=== PATIENT | female | born 1970 ===

== ENCOUNTER 2016-10-13 04:09 | Observation (INO) | payer MEDICAID ==
[2016-10-13 04:13] VITALS: BMI 33.5
[2016-10-13 04:20] VITALS: TEMP 98.3; O2SAT 100
[2016-10-13] MEDS ORDERED: Lactated Ringer's 1,000 ML IV STA (04:32)
--- NOTE | 2016-10-13 06:58 | US ---
EXAM: US First Trimester, Transabdominal CLINICAL HISTORY: 46 years old, female; Signs and symptoms; Lmp or gestational age (in weeks): 07/30/16; Antepartum complications; Hemorrhage; Additional info: R/O ectopic TECHNIQUE: Real-time transabdominal obstetrical ultrasound of the maternal pelvis and a first trimester with image documentation. COMPARISON: No relevant prior studies available. FINDINGS: Gestation: No intrauterine gestational sac. Uterus/cervix: Endometrium: 1.0 cm in thickness. Closed cervix. 5.8 x 5.9 x 5.6 cm uterine mass. Ovaries: Normal ovaries. No adnexal masses. Free fluid: Trace free fluid within pelvis. IMPRESSION: 1. No intrauterine gestation. DDX: Early IUP, missed , ectopic . 2. Probable fibroid. 3. Incidental/non-acute findings are described above. EXAM: US , Transvaginal CLINICAL HISTORY: 46 years old, female; Signs and symptoms; Lmp or gestational age (in weeks): 07/30/16; Antepartum complications; Hemorrhage; Additional info: R/O ectopic TECHNIQUE: Real-time transvaginal obstetrical ultrasound of the maternal pelvis and a first trimester with image documentation. Transvaginal imaging was used for better evaluation of the fetus and adnexa. COMPARISON: No relevant prior studies available. FINDINGS: Gestation: No intrauterine gestational sac. Uterus/cervix: Endometrium: 1.0 cm in thickness. Closed cervix. 5.8 x 5.9 x 5.6 cm uterine mass. Ovaries: Normal ovaries. No adnexal masses. Free fluid: Trace free fluid within pelvis.
--- NOTE | 2016-10-13 07:09 | ED PDOC ---
HPI: Female Pain Time Seen by Provider: 10/13/16 04:28 Chief Complaint (Nursing): Female Genitourinary Chief Complaint (Provider): Vaginal bleeding Additional Complaint(s): Sent from [place] [facility] for evaluation of ectopic . Pt reports mild pressurelike pain, and mild bleeding. Past Medical History Vital Signs: Last Vital Signs Temp 98.3 F 10/13/16 04:14 Pulse 78 10/13/16 04:14 Resp 16 10/13/16 04:14 BP 129/73 10/13/16 04:14 Pulse Ox 100 10/13/16 04:14 - Medical History PMH: Asthma, HTN Denies: Chronic Kidney Disease - Home Medications Home Medications: Ambulatory Orders Medication Instructions Recorded Lisinopril [Zestril] 10 mg PO DAILY 10/12/16 - Allergies Allergies/Adverse Reactions: Allergies Allergy/AdvReac Type Severity Reaction Status Date / Time No Known Allergies Allergy Verified 10/12/16 23:40 - ECG O2 Sat by Pulse Oximetry: 100 - Progress ED Course And Treament: BERHANE Blackwood who requests repeat US.
--- NOTE | 2016-10-13 07:28 | ED PDOC ---
- ECG O2 Sat by Pulse Oximetry: 100 Medical Decision Making Medical Decision Makin;00 patient signed out to me by Dr. Campbell pending US, re-eval, and final disposition. 9:[address] Shore and advises for repeat beta count in 2 days. patient is no longer bleeding as per Dr. Shore. The doctor does not believe this to be an ecoptic . Patient's vitals are stable. Re-evaluation. Patient feels better. Discussed results and plan with patient who expresses understanding. Counseling was provided regarding the diagnosis and prognosis. All questions answered and there is agreement with the plan to discharge home with instructions. Patient stable for discharge. Return if symptoms persist or worsen. Disposition - Clinical Impression Clinical Impression: Threatened - POA Present On Arrival: None - Disposition Disposition: Routine/Home Disposition Time: 09:20 Condition: STABLE
[2016-10-13 09:18] VITALS: BP 144/90; PULSE 72; RESP 18
--- NOTE | 2016-10-13 09:59 | CP.PCM.CON ---
<Asim Duggan - Last Filed: 10/13/16 10:02> History of Present Illness - History of Present Illness History of Present Illness: Consult note for OB Hx taken from patient 46 y/o F patient with PMHx of HTN presented to [facility] c/o vaginal bleeding and lower back pain since last night. Patient states she first noticed a lot of clots coming out from her vagina and after that, persistent VB associated with pain that was crampy. LMP 07/30/16. As per patient she had an IUD at the time she presented to ED and she has had irregular periods for a while. She is sexually active. Denies vomiting, nausea, CP, palpitations, headaches, vision changes. At [place] [facility] IUD was removed by attendant and she was transferred to our hospital for further eval. At the time of eval patient states pain and bleeding have improved. She denies any trauma or any particular events that she can relate to the onset of bleeding. ED course: WBC: 11.4 Hgb 13.5 Coags WNL Beta HCG 2888.7 TV US: No IUP, Possible fibroid(please see full report) IV fluids, Pain control, Zofran PMHx: HTN Meds: Metoprolol 25mg daily Allergies: NKDA SxHx: C-Sect x2 OB Hx: , LMP 07/30/16, IUD Review of Systems - Constitutional Constitutional: As Per HPI - EENT Eyes: As Per HPI - Cardiovascular Cardiovascular: As Per HPI - Respiratory Respiratory: As Per HPI - Gastrointestinal Gastrointestinal: As Per HPI - Genitourinary Genitourinary: As Per HPI - Menstruation Menstruation: As Per HPI - Neurological Neurological: As Per HPI Past Patient History - Infectious Disease Hx of Infectious Diseases: None - Tetanus Immunizations Tetanus Immunization: Unknown - Past Social History Smoking Status: Never Smoked - CARDIAC Hx Hypertension: Yes - PULMONARY Hx Asthma: Yes - NEUROLOGICAL Hx Neurological Disorder: No - HEENT Hx HEENT Problems: No - RENAL Hx Chronic Kidney Disease: No - ENDOCRINE/METABOLIC Hx Endocrine Disorders: No - HEMATOLOGICAL/ONCOLOGICAL Hx Blood Disorders: No - INTEGUMENTARY Hx Dermatological Problems: No - MUSCULOSKELETAL/RHEUMATOLOGICAL Hx Musculoskeletal Disorders: No - GASTROINTESTINAL Hx Gastrointestinal Disorders: No - GENITOURINARY/GYNECOLOGICAL Hx Genitourinary Disorders: No - PSYCHIATRIC Hx Psychophysiologic Disorder: No Hx Substance Use: No - SURGICAL HISTORY Hx Section: Yes (2) - ANESTHESIA Hx Anesthesia: No Meds Allergies/Adverse Reactions: Allergies Allergy/AdvReac Type Severity Reaction Status Date / Time No Known Allergies Allergy Verified 10/15/16 11:55 Physical Exam - Constitutional Appears: Non-toxic, No Acute Distress - Head Exam Head Exam: NORMAL INSPECTION - Eye Exam Eye Exam: EOMI, PERRL - ENT Exam ENT Exam: Mucous Membranes Moist - Neck Exam Neck exam: Positive for: Normal Inspection - Respiratory Exam Respiratory Exam: Clear to Auscultation Bilateral, NORMAL BREATHING PATTERN - Cardiovascular Exam Cardiovascular Exam: REGULAR RHYTHM, +S1, +S2 - GI/Abdominal Exam GI & Abdominal Exam: Normal Bowel Sounds, Soft, Tenderness (mild diffuse tenderness in lower abdomen). absent: Distended, Guarding, Rebound, Rigid - Exam Speculum exam: Vaginal Bleeding (No active bleeding. There is very small amount of blood in the ext orif.). absent: Foreign Body, Laceration, Tissue, Vaginal Discharge - Extremities Exam Extremities exam: Positive for: normal capillary refill, normal inspection - Neurological Exam Neurological exam: Alert, Oriented x3, Reflexes Normal - Psychiatric Exam Psychiatric exam: Normal Affect, Normal Mood - Skin Skin Exam: Normal Color, Warm Results - Vital Signs Recent Vital Signs: Last Vital Signs Temp 98.3 F 10/13/16 04:14 Pulse 72 10/13/16 09:00 Resp 18 10/13/16 09:00 BP 144/90 10/13/16 09:00 Pulse Ox 100 10/13/16 09:43 Assessment & Plan - Assessment and Plan (Free Text) Assessment: 46 y/o F with PMHx of HTN presents for evaluation of VB and abd pain -SAB vs Ectopic -Improved -Most likely SAB -Beta HCG 2888.7 -TV US no parts -Hgb and coags WNL -Hx of IUD -Will F/U with serial Beta HCG. Return next Friday10/15/16 for repeat Beta HCG to ED -If severe bleeding, pain or fever return to ED <Leticia Shore S - Last Filed: 10/16/16 00:02> History of Present Illness - History of Present Illness History of Present Illness: Pt seen & examined by me with dr. duggan. Agree with above assessment and plan. Results - Vital Signs Recent Vital Signs: Last Vital Signs Temp 98.3 F 10/13/16 04:14 Pulse 72 10/13/16 09:00 Resp 18 10/13/16 09:00 BP 144/90 10/13/16 09:00 Pulse Ox 100 10/13/16 09:43
== END 2016-10-13 09:44 | disposition home or self-care (01) ==
LOC: H.ER 04:09 → H.EROBSV 04:34
PROVIDERS: ADMIT Emergency Medicine; ATTEND Emergency Medicine
DX: O20.0 Threatened abortion (principal); Z3A.00 Weeks of gestation of pregnancy not specified; I10 Essential (primary) hypertension; J45.909 Unspecified asthma, uncomplicated

== ENCOUNTER 2016-10-15 11:20 | Emergency (ER) | payer MEDICAID ==
[2016-10-15 11:20] VITALS: BMI 33.5
[2016-10-15 12:07] VITALS: BP 138/81; PULSE 93; RESP 20; TEMP 98; O2SAT 99
--- NOTE | 2016-10-15 13:05 | ED PDOC ---
HPI: Female Pain Time Seen by Provider: 10/15/16 11:35 Chief Complaint (Nursing): Female Genitourinary Chief Complaint (Provider): Repeat beta hcg History Per: Patient History/Exam Limitations: no limitations Onset/Duration Of Symptoms: Days Current Symptoms Are (Timing): Still Present Additional Complaint(s): The pt is a 46yo female, presents to the ED for repeat beta-hcg levels as instructed by her OBGYN. Pt was seen in this facility couple days ago to rule out ectopic ; pt was seen by an OB in the facility who felt the symptoms indicated a threatened ab. Pt today states her abdominal pain as well as vaginal bleeding have both decreased. She denies any new medical complaints. Past Medical History Reviewed: Historical Data, Nursing Documentation, Vital Signs Vital Signs: Last Vital Signs Temp 98.0 F 10/15/16 11:55 Pulse 93 H 10/15/16 11:55 Resp 20 10/15/16 11:55 BP 138/81 10/15/16 11:55 Pulse Ox 99 10/15/16 11:55 - Medical History PMH: Asthma, HTN Denies: Chronic Kidney Disease - Surgical History Surgical History: No Surg Hx - Family History Family History: States: Unknown Family Hx - Living Arrangements Living Arrangements: With Family - Social History Current smoker - smoking cessation education provided: No Alcohol: None Drugs: Denies - Home Medications Home Medications: Ambulatory Orders Medication Instructions Recorded Lisinopril [Zestril] 10 mg PO DAILY 10/12/16 Ibuprofen [Motrin] 600 mg PO Q6H PRN #20 tab 10/15/16 - Allergies Allergies/Adverse Reactions: Allergies Allergy/AdvReac Type Severity Reaction Status Date / Time No Known Allergies Allergy Verified 10/15/16 11:55 Review of Systems ROS Statement: Except As Marked, All Systems Reviewed And Found Negative Gastrointestinal: Positive for: Abdominal Pain Genitourinary Female: Positive for: Vaginal Bleeding Physical Exam - Reviewed Nursing Documentation Reviewed: Yes Vital Signs Reviewed: Yes - Physical Exam Appears: Positive for: Well, Non-toxic, No Acute Distress Head Exam: Positive for: ATRAUMATIC, NORMAL INSPECTION, NORMOCEPHALIC Skin: Positive for: Normal Color, Warm, DRY Eye Exam: Positive for: Normal appearance Neck: Positive for: Normal, Supple Cardiovascular/Chest: Positive for: Regular Rate, Rhythm Respiratory: Positive for: Normal Breath Sounds. Negative for: Respiratory Distress Gastrointestinal/Abdominal: Positive for: Soft, Tenderness (mild suprapubic tenderness). Negative for: Guarding, Rebound Extremity: Positive for: Normal ROM. Negative for: Deformity, Swelling Neurologic/Psych: Positive for: Alert, Oriented - ECG O2 Sat by Pulse Oximetry: 99 Medical Decision Making Medical Decision Making: Time: 1200 Impression: Repeat beta-HCG Plan: -- Beta HCG -- Reassess Time: [address] Aaron who spoke with Dr. Shore, OB conduit bender who informed the pt is stable for d.c home with follow up to pt's personal OB in 1 week. Scribe Attestation: Documented by Alyce Strong acting as a scribe for Karon Fitzpatrick MD. Provider Attestation: All medical record entries made by the Scribe were at my direction and personally dictated by me. I have reviewed the chart and agree that the record accurately reflects my personal performance of the history, physical exam, medical decision making, and the department course for this patient. I have also personally directed, reviewed, and agree with the discharge instructions and disposition. Disposition - Clinical Impression Clinical Impression: Spontaneous - Disposition Disposition: Routine/Home Disposition Time: 13:45 Condition: STABLE Additional Instructions: FOLLOW-UP WITH YOUR OB-LABELER IN ONE WEEK FOR REEVALUATION. Prescriptions: Ibuprofen [Motrin] 600 mg PO Q6H PRN #20 tab PRN Reason: Pain, Moderate (4-7) Instructions: Spontaneous Miscarriage (ED) Print Language: PERUVIAN
== END 2016-10-15 14:28 | disposition home or self-care (01) ==
LOC: H.ER 11:20
DX: O20.0 Threatened abortion (principal)